=== PATIENT | male | born 1955 | race Caucasian/White ===

== ENCOUNTER → 2019-01-03 08:46 | Outpatient (CLI) | payer OTHER, SELFPAY ==
[2019-01-03 09:34] LABS: Add Manual Diff / Slide Review NO; Basophils Absolute Auto 0 /uL (0-100); Basophils Percent Auto 0.5 % (0-2); Eosinophils Absolute Auto 100 /uL (0-450); Eosinophils Percent Auto 2.4 % (2-4); Hematocrit 43.7 % (41-53); Hemoglobin 14.7 g/dL (13.5-17.5); Lymphocytes Absolute Auto 1500 /uL (1100-4500); Lymphocytes Percent Auto 32.1 % (25-40); Mean Corpuscular HGB Conc 33.6 % (30-36); Mean Corpuscular Hemoglobin 31.7 PG (26-34); Mean Corpuscular Volume 94.3 fL (80-100); Monocytes Absolute Auto 400 /uL (0-900); Neutrophils Absolute Auto 2600 /uL (1500-7000); Platelet Count 156 X10^3/uL (150-400); Red Blood Cell Count 4.63 X10^6/uL (4.5-5.9); Red Cell Distribution Width 12.9 % (11.6-14.8); White Blood Cell Count 4.7 X10^3/uL (4.5-11.0)
[2019-01-03 10:07] LABS: Alanine Aminotransferase 32 IU/L (21-72); Albumin 4.6 g/dL (3.5-5.0); Albumin Globulin Ratio 1.3 (1.0-2.8); Alkaline Phosphatase 79 U/L (38-126); Aspartate Aminotransferase 30 IU/L (17-59); Bilirubin Total 0.5 mg/dL (0.2-1.3); Blood Urea Nitrogen 20 mg/dL (9-20); Calcium 9.3 mg/dL (8.4-10.2); Carbon Dioxide 26 mmol/L (22-32); Chloride 102 mmol/L (98-107); Estimated Glomerular Filt Rate > 60.0 mL/min (>60); Globulin 3.5 g/dL (1.7-4.1); Glucose 103 mg/dL (80-110); HEMOLYSIS < 15 (0-50); Potassium 4.1 mmol/L (3.4-5.1); Sodium 139 mmol/L (137-145); Total Protein 8.1 g/dL (6.3-8.2)
[2019-01-03 10:34] LABS: Prostate Specific Antigen Scrn 0.986 ng/mL (0.1-4.0)
== END ==
PROVIDERS: PCP Internal Medicine; Visit Provider Internal Medicine
DX: E66.9 Obesity, unspecified (principal); I10 Essential (primary) hypertension; E78.00 Pure hypercholesterolemia, unspecified
CPT/HCPCS: 36415; 80053; 80061; 85025; G0103

== ENCOUNTER → 2019-01-17 09:08 | Outpatient (CLI) | payer OTHER, SELFPAY ==
[2019-01-17 10:35] LABS: Cholesterol 185 mg/dL (140-199); HDL Cholesterol 36 mg/dL (40-60); LDL Cholesterol Calculated 117 mg/dL (<100); Triglycerides 160 mg/dL (35-150)
== END ==
PROVIDERS: PCP Internal Medicine; Visit Provider Internal Medicine
DX: E78.00 Pure hypercholesterolemia, unspecified (principal)
CPT/HCPCS: 36415; 80061

== ENCOUNTER → 2019-10-14 16:44 | Outpatient (CLI) | payer MEDICARE, OTHER, SELFPAY ==
--- NOTE | 2019-10-14 16:52 | DI.MRI.S_ITS ---
PROCEDURE: MR KNEE RT WO CON INDICATIONS: PAIN RIGHT KNEE TECHNIQUE: Noncontrast sagittal PD fast spin echo and T2 fast spin echo with fat saturation, sagittal 3-D FLASH with fat saturation; coronal T1 spin echo and PD fast spin echo with fat saturation, and axial PD fast spin echo with fat saturation through the knee. COMPARISON: [facility] [place], CR, XR KNEE ARTHRITIC SERIES RT, 10/08/2019, 14:59. FINDINGS: Image quality: Excellent. Menisci: Medial meniscal tear involving posterior horn and body with near-complete extrusion. There may be displaced meniscal fragment within the medial gutter. Lateral meniscus intact. Cruciate ligaments: Anterior cruciate ligament appears intact. Posterior cruciate ligament appears intact. Medial structures: The medial collateral ligament appears intact. Distal semimembranosus insertional tendinopathy. Visualized portions of the pes anserinus tendons appear normal. No abnormal bursal fluid. Lateral structures: The lateral collateral ligament intact. Biceps femoris tendon appears intact. Popliteus tendon grossly unremarkable. Iliotibial band appears intact. Anterior structures: Quadriceps tendon intact. Lateral patellofemoral ligament intact. Irregularity mild thickening of the patellar attachment of the medial patellofemoral ligament raising possibility of age unknown sprain There is mild patellar tendinopathy. Prepatellar and superficial infrapatellar subcutaneous edema/fluid. Bones and cartilage: No focal marrow contusion or discrete low signal fracture line. Within the medial compartment, diffuse partial loss of the femoral and tibial articular cartilage. Diffuse subchondral marrow edema and cystic changes. Within the lateral compartment, mild surface fraying of the central weightbearing tibial cartilage without focal defect Within the patellofemoral compartment, partial-thickness loss of the cartilage overlying the medial patellar facet with underlying subchondral edema/cystic change. There is also partial-thickness loss of the medial trochlear cartilage Joint space: No pathologic joint effusion. No Chambers's cyst. No specific evidence of intra-articular loose body. IMPRESSION: Complex macerated tear involving the posterior horn and body of the medial meniscus with partial extrusion as discussed above. Possible displaced meniscal fragment within the medial gutter. Diffuse patellar tendinopathy Possible age unknown sprain of the patellar attachment of the medial patellofemoral ligament Insertional semimembranosus tendinopathy Degenerative joint disease as above. Dictated by: Amarjit Ovalle M.D. on 10/15/2019 at 9:08 Approved by: Amarjit Ovalle M.D. on 10/15/2019 at 9:17
== END ==
PROVIDERS: PCP Internal Medicine; Visit Provider Orthopaedic Surgery Adult Reconstructive Orthopaedic Surgery
DX: M25.561 Pain in right knee (principal); S83.231A Complex tear of medial meniscus, current injury, right knee, initial encounter; M17.11 Unilateral primary osteoarthritis, right knee; M67.961 Unspecified disorder of synovium and tendon, right lower leg
CPT/HCPCS: 73721

== ENCOUNTER → 2020-01-13 10:05 | Outpatient (CLI) | payer MEDICARE, OTHER, SELFPAY ==
[2020-01-13 11:40] LABS: Alanine Aminotransferase 31 IU/L (<50); Albumin 4.7 g/dL (3.5-5.0); Albumin Globulin Ratio 1.5 (1.0-2.8); Alkaline Phosphatase 94 U/L (38-126); Aspartate Aminotransferase 30 IU/L (17-59); Bilirubin Total 0.7 mg/dL (0.2-1.3); Blood Urea Nitrogen 22 mg/dL (9-20); Calcium 9.5 mg/dL (8.4-10.2); Carbon Dioxide 23 mmol/L (22-32); Chloride 103 mmol/L (98-107); Cholesterol 183 mg/dL (140-199); Estimated Glomerular Filt Rate > 60.0 mL/min (>60); Globulin 3.2 g/dL (1.7-4.1); Glucose 102 mg/dL (80-110); HDL Cholesterol 35 mg/dL (40-60); HEMOLYSIS < 15 (0-50); LDL Cholesterol Calculated 121 mg/dL (<100); Potassium 4.6 mmol/L (3.4-5.1); Sodium 139 mmol/L (137-145); Total Protein 7.9 g/dL (6.3-8.2); Triglycerides 135 mg/dL (35-150)
[2020-01-13 12:11] LABS: Prostate Specific Antigen Scrn 0.959 ng/mL (0.1-4.0)
== END ==
PROVIDERS: PCP Internal Medicine; Referring Provider Internal Medicine; Visit Provider Internal Medicine
DX: Z12.5 Encounter for screening for malignant neoplasm of prostate (principal); I10 Essential (primary) hypertension; E78.00 Pure hypercholesterolemia, unspecified
CPT/HCPCS: 36415; 80053; 80061; G0103

== ENCOUNTER → 2020-02-03 06:39 | Outpatient (CLI) | payer MEDICARE, OTHER, SELFPAY ==
--- NOTE | 2020-02-03 | DI.ECHO.S_ITS ---
[facility] +---------+ : : [address] : : : : [id number] : : : : Phone: [phone]+ Echocardiogram Report + + :Name: MAHAMED HERNANDEZ Study Date: 02/03/2020 Height: 76 in : :[facility] Weight: 250 lb : : Gender: Male BSA: 2.4 m2 : :: 1955 Age: 64 yrs BP: 148/88 mmHg: :Reason For Study: Hypertension : :Ordering Physician: Dr. Abraham : :Santi Performed By: Chela Otto : :Referring: KATTY FONTAINE : + + Interpretation Summary 1) Normal left ventricular size, thickness, wall motion, and systolic function (EF 60-65%). 2) Normal right ventricular size and function. 3) No significant valvular abnormalities. 4) Hypertension present during the study (BP 148/88mmHg). 5) No prior Echo available for comparison. Procedure: A two-dimensional transthoracic echocardiogram with color flow and Doppler was performed. There is no prior echocardiogram noted for this patient. The study quality was technically adequate. The patient was in normal sinus rhythm during the exam. Left Ventricle: The left ventricle is normal in size. There is normal left ventricular wall thickness. Proximal septal thickening is noted. The ejection fraction is estimated to be 60-65%. Diastolic parameters suggest probable normal left ventricular diastolic function and normal filling pressures. Right Ventricle: The right ventricle is normal in size and function. Atria: The left atrial size is normal. Right atrial size is normal. There is no Doppler evidence for an interatrial shunt. Mitral Valve: The mitral valve is grossly normal. There is trace mitral regurgitation. Aortic Valve: The aortic valve is normal in structure and function. There is no aortic valve stenosis. There is trace aortic regurgitation. Tricuspid Valve: The tricuspid valve is normal in structure and function. There is mild tricuspid regurgitation. The right ventricular systolic pressure is estimated to be at least 23 mmHg based on an estimated right atrial pressure of 3 mm Hg. Pulmonic Valve: The pulmonic valve is not well seen, but is grossly normal. There is trace pulmonic regurgitation. Great Vessels: The aortic root is normal size. The dimensions of the ascending aorta are normal. The IVC is of normal diameter and collapses greater than 50% with a sniff. This suggests a low right atrial pressure of 3 mm Hg. Pericardium/ Pleura There is no pericardial effusion. There is no pleural effusion. MMode/2D Measurements & Calculations LVIDd: 5.5 cm LVOT diam: 2.3 cm LVIDs: 3.5 cm Ao root diam: 2.7 cm FS: 37.0 % asc Aorta Diam: 3.4 cm EPSS: 0.45 cm Ao Arch Diam (Prox Trans): 3.3 cm IVSd: 0.75 cm LVPWd: 0.99 cm LV batista. diameter/BSA (cm/m^2): 2.3 LV sys. diameter/BSA (cm/m^2): 1.4 LA A2 area: 16.9 cm2 RA long axis: 4.5 cm LA A4 area: 17.5 cm2 RA area: 16.1 cm2 LA length (vol): 5.2 cm RA vol: 48.9 ml LA vol: 48.4 ml RA : 20.1 ml/m2 LA vol index: 19.9 ml/m2 IVC diam: 2.0 cm RVD1 (basal): 3.9 cm TAPSE: 2.0 cm Doppler Measurements & Calculations Ao V2 max: 135.6 cm/sec LVOT Max Rajat: 136.2 cm/sec Ao V2 mean: 96.0 cm/sec LV V1 max P.4 mmHg Ao max P.4 mmHg LV V1 VTI: 30.5 cm Ao mean P.0 mmHg TERA(I,D): 4.9 cm2 Ao V2 VTI: 25.3 cm TERA(V,D): 4.1 cm2 sev ratio: 1.2 TERA indexed to BSA (cm^2/m^2): 2.0 MV E max rajat: 82.6 cm/sec TR max rajat: 225.0 cm/sec MV A max rajat: 61.2 cm/sec TR max P.3 mmHg MV E/A: 1.3 PA V2 max: 82.4 cm/sec Med Peak E' Rajat: 7.9 cm/sec PA V2 mean: 55.5 cm/sec E/E' med: 10.5 PA mean P.4 mmHg Lat Peak E' Rajat: 8.8 cm/sec PA pr(Accel): 12.0 mmHg E/E' lat: 9.3 E/e' average: 9.9 MV dec time: 0.26 sec SV(LVOT): 124.8 ml Reading Physician:03:24 PM
== END ==
PROVIDERS: PCP Internal Medicine; Referring Provider Internal Medicine; Visit Provider Internal Medicine
DX: I07.1 Rheumatic tricuspid insufficiency (principal); I10 Essential (primary) hypertension
CPT/HCPCS: 93306

== ENCOUNTER → 2020-02-26 08:46 | Outpatient (CLI) | payer MEDICARE, OTHER, SELFPAY ==
[2020-02-26 11:18] LABS: Alanine Aminotransferase 21 IU/L (<50); Aspartate Aminotransferase 23 IU/L (17-59); Cholesterol 138 mg/dL (140-199); HDL Cholesterol 34 mg/dL (40-60); LDL Cholesterol Calculated 47 mg/dL (<100); Triglycerides 287 mg/dL (35-150)
== END ==
PROVIDERS: PCP Internal Medicine; Referring Provider Internal Medicine; Visit Provider Internal Medicine
DX: E78.2 Mixed hyperlipidemia (principal)
CPT/HCPCS: 36415; 80061; 84450; 84460

== ENCOUNTER → 2020-09-10 09:15 | Outpatient (CLI) | payer MEDICARE, OTHER, SELFPAY ==
[2020-09-10 12:10] LABS: Cholesterol 111 mg/dL (140-199); HDL Cholesterol 35 mg/dL (40-60); LDL Cholesterol Calculated 55 mg/dL (<100); Triglycerides 105 mg/dL (35-150)
== END ==
PROVIDERS: PCP Internal Medicine; Referring Provider Internal Medicine; Visit Provider Internal Medicine
DX: I10 Essential (primary) hypertension (principal); E78.2 Mixed hyperlipidemia
CPT/HCPCS: 36415; 80061

== ENCOUNTER → 2021-02-24 10:13 | Outpatient (CLI) | payer MEDICARE, OTHER, SELFPAY ==
[2021-02-24 11:12] LABS: COVID19 -Nasal RAPID Negative (Negative)
== END ==
PROVIDERS: PCP Internal Medicine; Visit Provider Physician Assistant
DX: Z01.812 Encounter for preprocedural laboratory examination (principal); Z20.822 Contact with and (suspected) exposure to COVID-19
CPT/HCPCS: 87635; C9803

== ENCOUNTER → 2021-02-26 10:42 | Outpatient (CLI) | payer MEDICARE, OTHER, SELFPAY ==
--- NOTE | 2021-03-01 19:26 | DI.NM.S_ITS ---
DATE OF SERVICE: 02/26/2021 PROCEDURE PERFORMED: Exercise treadmill, converted to pharmacologic vasodilator stress and rest myocardial perfusion imaging with gating to assess ejection fraction and regional wall motion. ORDERING PROVIDER: Dr. Jarad Hancock. INDICATIONS: The patient is a 65-year-old male with exertional chest and back discomfort. CARDIAC STRESS: The patient was initially stressed on the treadmill and was able to walk for 7 minutes 50 seconds on a standard Torrey protocol suggesting fair exercise capacity with an BRENDA of -1%. With this, he had a hypertensive blood pressure response with a resting blood pressure of 140/86, increasing to a maximum of 220/100. He had a somewhat blunted heart rate response, likely due to atenolol, and reached a maximum heart rate of only 127 BPM (82% of his predicted maximum) and therefore was converted to a pharmacologic perfusion study by the injection of 0.4 mg of regadenoson in addition to low-level walking. He developed midsternal chest heaviness in stage 2 of the Torrey protocol that dissipated slowly in recovery. His resting ECG showed fairly normal ST segments, but with stress he developed 1.5 to [address] depression in the anterior leads and occasional PVCs, at times, in couplets and triplets with exercise, but no sustained arrhythmias. Per protocol, after injection of regadenoson, he was injected with 27.8 millicuries of technetium-99m Myoview and was imaged 30 minutes later using a gated SPECT acquisition protocol. He returned three days later and while at rest was injected with 25.4 millicuries of technetium-99m Myoview and was imaged 30 minutes later using a gated SPECT acquisition protocol. FINDINGS: 1. Raw data: There is fairly good myocardial tracer uptake. Lung/heart ratio was normal at 0.33 with a normal TID ratio of 1.18. 2. Quantitated gated SPECT: Post-stress ejection fraction is estimated at 67% with hypokinesis in the distal anterior wall and the mid and distal lateral wall. The resting ejection fraction is estimated at 73% with resolution of these wall motion abnormalities. Resting end-diastolic volume is mildly elevated at 139 mL. 3. Myocardial perfusion imaging: Post-stress supine images show a moderate to severe perfusion defect in the distal anterior wall extending to the apex and the apical anterolateral wall, but sparing the septum. In addition, there is a severe perfusion defect in the entire inferolateral wall from apex to base. Both of these defects persists on the prone images suggesting that they do not reflect attenuation artifact. The resting images show a much more normal perfusion pattern with only mild perfusion defect in the proximal and mid inferolateral wall, but normal perfusion in the distal anterior wall and the majority of the inferolateral wall. IMPRESSION: 1. Abnormal myocardial perfusion study. 2. Fully reversible distal anterior and anteroapical and distal anterolateral defect consistent with ischemia in the mid to distal LAD distribution. In addition, there is a predominantly reversible perfusion defect in the entire inferolateral segment with only a slight fixed defect in the very proximal inferolateral wall. This would suggest ischemia in the left circumflex distribution. 3. Preserved left ventricular systolic function but with inducible wall motion abnormalities in both distributions. Left ventricular size is mildly increased. 4. Average exercise capacity with a somewhat blunted heart rate response but with provokable chest discomfort concerning for angina associated with moderate ST-segment depression consistent with an ischemic response. He had frequent PVCs with couplets and triplets, but no sustained arrhythmias. Dr. Hancock was notified of these abnormalities. Yeison Parker - /cherie/lc doc#: [id number]/job#: [id number] dd: 03/01/2021 17:07:00 dt: 03/01/2021 18:41:00 DICTATING MD/COPIES TO: Sony Hopkins MD; Jarad Hancock MD COPIES MNE: AL;
== END ==
PROVIDERS: PCP Internal Medicine; Referring Provider Internal Medicine; Visit Provider Internal Medicine
DX: R07.9 Chest pain, unspecified (principal); R94.39 Abnormal result of other cardiovascular function study
CPT/HCPCS: 78452; 93017; A9502; J2785

== ENCOUNTER → 2021-03-13 09:58 | Outpatient (CLI) | payer MEDICARE, OTHER, SELFPAY ==
[2021-03-13 12:24] LABS: COVID19 -Nasal RAPID Negative (Negative)
== END ==
PROVIDERS: PCP Internal Medicine; Visit Provider Physician Assistant
DX: Z20.822 Contact with and (suspected) exposure to COVID-19 (principal)
CPT/HCPCS: 87635; C9803

== ENCOUNTER → 2021-09-02 11:39 | Outpatient (CLI) | payer MEDICARE, OTHER, SELFPAY ==
[2021-09-02 13:11] LABS: Add Manual Diff / Slide Review NO; Basophils Absolute Auto 0 /uL (0-100); Basophils Percent Auto 0.5 % (0-2); Eosinophils Absolute Auto 100 /uL (0-450); Hematocrit 43.7 % (41-53); Hemoglobin 14.5 g/dL (13.5-17.5); Lymphocytes Absolute Auto 1700 /uL (1100-4500); Lymphocytes Percent Auto 30.9 % (25-40); Mean Corpuscular HGB Conc 33.3 % (30-36); Mean Corpuscular Hemoglobin 31.6 PG (26-34); Mean Corpuscular Volume 94.9 fL (80-100); Monocytes Absolute Auto 500 /uL (0-900); Neutrophils Absolute Auto 3100 /uL (1500-7000); Neutrophils Percent Auto 56.6 % (50-75); Platelet Count 170 X10^3/uL (150-400); Red Cell Distribution Width 13.1 % (11.6-14.8); White Blood Cell Count 5.5 X10^3/uL (4.5-11.0)
[2021-09-02 13:24] LABS: Carbon Dioxide 25 mmol/L (22-32); Chloride 101 mmol/L (98-107); HEMOLYSIS < 15 (0-50); Potassium 4.3 mmol/L (3.4-5.1); Sodium 137 mmol/L (137-145)
== END ==
PROVIDERS: PCP Internal Medicine; Referring Provider Orthopaedic Surgery; Visit Provider Orthopaedic Surgery
DX: Z01.818 Encounter for other preprocedural examination (principal); Z01.812 Encounter for preprocedural laboratory examination
CPT/HCPCS: 36415; 80051; 85025; 93005; 93010

== ENCOUNTER → 2021-10-18 09:22 | Outpatient (CLI) | payer MEDICARE, OTHER, SELFPAY ==
[2021-10-18 12:15] LABS: BUN Creatinine Ratio 19.4 (6-22); Blood Urea Nitrogen 19 mg/dL (9-20); Calcium 9.3 mg/dL (8.4-10.2); Carbon Dioxide 28 mmol/L (22-32); Chloride 102 mmol/L (98-107); Cholesterol 150 mg/dL (140-199); Estimated Glomerular Filt Rate > 60.0 mL/min (>60); Glucose 94 mg/dL (80-110); HDL Cholesterol 41 mg/dL (40-60); HEMOLYSIS < 15 (0-50); LDL Cholesterol Calculated 71 mg/dL (<100); Potassium 4.4 mmol/L (3.4-5.1); Sodium 139 mmol/L (137-145); Triglycerides 189 mg/dL (35-150)
== END ==
PROVIDERS: PCP Internal Medicine; Referring Provider Internal Medicine Interventional Cardiology; Visit Provider Internal Medicine Interventional Cardiology
DX: I25.10 Atherosclerotic heart disease of native coronary artery without angina pectoris (principal); Z95.5 Presence of coronary angioplasty implant and graft
CPT/HCPCS: 36415; 80048; 80061

== ENCOUNTER → 2022-11-02 10:17 | Outpatient (CLI) | payer MEDICARE, OTHER, SELFPAY ==
[2022-11-02 13:58] LABS: BUN Creatinine Ratio 22.6 (6-22); Blood Urea Nitrogen 21 mg/dL (9-20); Calcium 8.7 mg/dL (8.4-10.2); Carbon Dioxide 29 mmol/L (22-32); Chloride 101 mmol/L (98-107); Cholesterol 137 mg/dL (140-199); Estimated Glomerular Filt Rate > 60 mL/min (>60); Glucose 90 mg/dL (80-110); HDL Cholesterol 35 mg/dL (40-60); HEMOLYSIS < 15 (0-50); LDL Cholesterol Calculated 71 mg/dL (<100); Potassium 3.9 mmol/L (3.4-5.1); Sodium 142 mmol/L (137-145); Triglycerides 155 mg/dL (35-150)
== END ==
PROVIDERS: PCP Internal Medicine; Referring Provider Internal Medicine Interventional Cardiology; Visit Provider Internal Medicine Interventional Cardiology
DX: I25.10 Atherosclerotic heart disease of native coronary artery without angina pectoris (principal)
CPT/HCPCS: 36415; 80048; 80061

== ENCOUNTER → 2023-12-12 09:12 | Outpatient (CLI) | payer MEDICARE, OTHER, SELFPAY ==
[2023-12-12 10:46] LABS: BUN Creatinine Ratio 23.7 (6-22); Blood Urea Nitrogen 22 mg/dL (9-20); Calcium 9.3 mg/dL (8.4-10.2); Carbon Dioxide 29 mmol/L (22-32); Chloride 99 mmol/L (98-107); Cholesterol 109 mg/dL (140-199); Estimated Glomerular Filt Rate > 60 mL/min (>60); Glucose 96 mg/dL (80-110); HDL Cholesterol 34 mg/dL (40-60); HEMOLYSIS < 15 (0-50); LDL Cholesterol Calculated 56 mg/dL (<100); Potassium 4.2 mmol/L (3.4-5.1); Sodium 135 mmol/L (137-145); Triglycerides 96 mg/dL (35-150)
== END ==
LOC: LAB 09:14
PROVIDERS: PCP Physician Assistant; Referring Provider Internal Medicine Interventional Cardiology; Visit Provider Internal Medicine Interventional Cardiology
DX: I25.10 Atherosclerotic heart disease of native coronary artery without angina pectoris (principal)
CPT/HCPCS: 36415; 80048; 80061

== ENCOUNTER → 2025-07-01 08:46 | Outpatient (CLI) | payer MEDICARE, OTHER, SELFPAY ==
[2025-07-01 10:06] LABS: Add Manual Diff / Slide Review NO; Hematocrit 41.9 % (41-53); Hemoglobin 14.5 g/dL (13.5-17.5); Lymphocytes Absolute Auto 1700 /uL (1100-4500); Mean Corpuscular HGB Conc 34.6 % (30-36); Mean Corpuscular Hemoglobin 33.2 PG (26-34); Mean Corpuscular Volume 95.9 fL (80-100); Platelet Count 160 X10^3/uL (150-400)
[2025-07-01 11:03] LABS: Blood Urea Nitrogen 22 mg/dL (9-20); Calcium 8.7 mg/dL (8.4-10.2); Carbon Dioxide 26 mmol/L (22-32); Chloride 105 mmol/L (98-107); Estimated Glomerular Filt Rate > 60 mL/min (>60); Glucose 111 mg/dL (70-99); HEMOLYSIS < 15 (0-50); Potassium 4.2 mmol/L (3.4-5.1); Sodium 138 mmol/L (137-145)
== END ==
PROVIDERS: PCP Physician Assistant; Referring Provider Orthopaedic Surgery Foot and Ankle Surgery; Visit Provider Orthopaedic Surgery Foot and Ankle Surgery
DX: Z01.812 Encounter for preprocedural laboratory examination (principal)
CPT/HCPCS: 36415; 80048; 85025